=== PATIENT | female | born 1990 | race Caucasian/White ===

== ENCOUNTER 2019-12-16 09:37 | Inpatient (IN) | payer MEDICAID ==
[~2019-12-16] VITALS: Ht 165.1 cm; Wt 46.2 kg
[2019-12-16] MEDS ORDERED: ZOLPIDEM TARTRATE 10 MG TABLET PO PRN (10:30)
[2019-12-16 12:12] VITALS: BP 145/58
[2019-12-16] MEDS ORDERED: GuaiFENesin/D-METHORPHAN [SUGAR-FREE] 200-20MG/10 ML SYRUP UDCUP PO PRN (14:15)
[2019-12-16] MEDS ORDERED: ACETAMINOPHEN 325 MG TABLET PO PRN (14:15)
[2019-12-16] MEDS ORDERED: IBUPROFEN 400 MG TABLET PO PRN (14:15)
[2019-12-16] MEDS ORDERED: ALBUTEROL SULFATE HFA 90 MCG/PUFF 8 GM INHALER IH PRN (14:15)
[2019-12-16] MEDS ORDERED: PETROLATUM,WHITE 28 GM JELLY TP PRN (14:15)
[2019-12-16] MEDS ORDERED: CloNIDine HCL 0.1 MG TABLET PO PRN (14:15)
[2019-12-16] MEDS ORDERED: NICOTINE 14 MG/24 HOUR PATCH TD PRN (14:15)
[2019-12-16] MEDS ORDERED: ONDANSETRON HCL 4 MG TABLET PO PRN (14:15)
[2019-12-16] MEDS ORDERED: DOCUSATE SODIUM 100 MG CAPSULE PO PRN (14:15)
[2019-12-16] MEDS ORDERED: MAGNESIUM HYDROXIDE SUSPENSION 30 ML UDCUP PO PRN (14:15)
[2019-12-16] MEDS ORDERED: LOPERAMIDE HCL 2 MG CAPSULE PO PRN (14:15)
[2019-12-16] MEDS ORDERED: MAG HYDROX/AL HYDROX/SIMETH ES 30 ML SUSPENSION UDCUP PO PRN (14:15)
[2019-12-16 16:27] VITALS: BP 89/54
[2019-12-16 17:57] VITALS: BP 110/68
[2019-12-17 02:15] VITALS: BP 121/60
[2019-12-17 09:03] LABS: AMPHET/METH SCREEN,URINE POSITIVE (NEGATIVE); BARBITURATE SCREEN, URINE NEGATIVE (NEGATIVE); BENZODIAZEPINES SCREEN,URINE NEGATIVE (NEGATIVE); CANNABINOID SCREEN,URINE POSITIVE (NEGATIVE); COCAINE SCREEN,URINE NEGATIVE (NEGATIVE); METHADONE SCREEN, URINE NEGATIVE (NEGATIVE); OPIATE SCREEN,URINE NEGATIVE (NEGATIVE); PHENCYCLIDINE SCREEN,URINE NEGATIVE (NEGATIVE)
[2019-12-17 09:08] LABS: GLUCOSE, URINE (UA) NEGATIVE (NEGATIVE); KETONES,URINE TRACE mg/dL (NEGATIVE); NITRATE,URINE NEGATIVE (NEGATIVE); PH,URINE 5.5 (5.0-8.0); PROTEIN,URINE POS 1+ (NEGATIVE); UROBILINOGEN,URINE 0.2 mg/dL (<=1.0)
[2019-12-17 09:10] LABS: APPEARANCE,URINE SLIGHTLY CLOUDY (CLEAR); BILIRUBIN,URINE PRELIM. POSITIVE (NEGATIVE); LEUKOCYTE ESTERASE ,URINE MODERATE (NEGATIVE); OCCULT BLOOD,URINE TRACE (NEGATIVE)
[2019-12-17 09:11] LABS: BACTERIA,URINE None Seen /HPF (None Seen); CALCIUM OXALATE CRYSTALS,UR Few /LPF (None Seen); RBC,URINE 0-2 /HPF (0-2); SQUAMOUS EPITHELIAL CELL,UR Many /LPF (None Seen)
[2019-12-17 09:13] VITALS: BP 116/73
[2019-12-17] MEDS: ARIPiprazole 5 MG TABLET PO SCH (09:32)
[2019-12-17] MEDS: FLUoxetine HCL 20 MG CAPSULE PO SCH (09:34)
[2019-12-17 16:06] VITALS: BP 116/72
[2019-12-17] MEDS: CIPROFLOXACIN HCL 250 MG TABLET PO SCH (21:09)
[2019-12-18 01:17] VITALS: BP 110/77
[2019-12-18] MEDS: CIPROFLOXACIN HCL 250 MG TABLET PO SCH ×2 (08:15→20:07)
[2019-12-18] MEDS: FLUoxetine HCL 20 MG CAPSULE PO SCH (08:15)
[2019-12-18] MEDS: MULTIVITAMINS, THERAPEUTIC TABLET PO SCH (08:15)
[2019-12-18] MEDS: ARIPiprazole 5 MG TABLET PO SCH (08:15)
[2019-12-18] MEDS: HALOPERIDOL 5 MG TABLET PO PRN (08:41)
[2019-12-18] MEDS: LORazepam 2 MG TABLET PO PRN (08:41)
[2019-12-18 17:10] VITALS: BP 122/74
[2019-12-18 18:25] VITALS: BP 123/74
[2019-12-19 01:11] VITALS: BP 120/69
[2019-12-19] MEDS: CIPROFLOXACIN HCL 250 MG TABLET PO SCH (08:08)
[2019-12-19] MEDS: ARIPiprazole 5 MG TABLET PO SCH (08:08)
[2019-12-19] MEDS: MULTIVITAMINS, THERAPEUTIC TABLET PO SCH (08:09)
[2019-12-19] MEDS: FLUoxetine HCL 20 MG CAPSULE PO SCH (08:09)
[2019-12-19] MEDS: LORazepam 2 MG TABLET PO PRN (08:09)
[2019-12-19] MEDS: HALOPERIDOL 5 MG TABLET PO PRN (08:09)
[2019-12-19 08:14] VITALS: BP 112/74
[2019-12-19] MEDS ORDERED: ARIP5TAB8 PO (09:32)
[2019-12-19] MEDS ORDERED: FLUO-191 PO (09:32)
[2019-12-19] MEDS ORDERED: CIPR250T6 PO (12:16)
== END 2019-12-19 19:33 | disposition home or self-care (01) | DRG 751 ==
LOC: EDBD 11:50 → B3A 11:50
DX: F29 Unspecified psychosis not due to a substance or known physiological condition (principal); F15.10 Other stimulant abuse, uncomplicated; F12.10 Cannabis abuse, uncomplicated; N39.0 Urinary tract infection, site not specified; Z79.899 Other long term (current) drug therapy
CPT/HCPCS: 80307; 87086

== ENCOUNTER 2020-02-10 07:55 | Inpatient (IN) | payer MEDICAID ==
[~2020-02-10] VITALS: Ht 165.1 cm; Wt 49.0 kg
[~2020-02-10 07:55] MED LIST: ARIP5TAB8 PO; CIPR250T6 PO; FLUO-191 PO
[2020-02-10] MEDS ORDERED: TUBERCULIN, PURIFIED PROTEIN DERIVATIVE 5 TU/0.1 ML SYRINGE ID ONE (08:30)
[2020-02-10] MEDS ORDERED: MAG HYDROX/AL HYDROX/SIMETH ES 30 ML SUSPENSION UDCUP PO PRN (08:30)
[2020-02-10] MEDS ORDERED: PROMETHAZINE HCL 25 MG TABLET PO PRN (08:30)
[2020-02-10] MEDS ORDERED: ZOLPIDEM TARTRATE 10 MG TABLET PO PRN (08:30)
[2020-02-10] MEDS ORDERED: MAGNESIUM HYDROXIDE SUSPENSION 30 ML UDCUP PO PRN (08:30)
[2020-02-10] MEDS ORDERED: ACETAMINOPHEN 325 MG TABLET PO PRN (08:30)
[2020-02-10] MEDS ORDERED: LOPERAMIDE HCL 2 MG CAPSULE PO PRN (08:30)
[2020-02-10] MEDS ORDERED: HydrOXYzine PAMOATE 50 MG CAPSULE PO PRN (08:30)
[2020-02-10] MEDS ORDERED: OLANZapine 5 MG RAPDIS TABLET PO PRN (08:30)
[2020-02-10] MEDS ORDERED: GuaiFENesin/D-METHORPHAN [SUGAR-FREE] 200-20MG/10 ML SYRUP UDCUP PO PRN (08:30)
[2020-02-10] MEDS: OMEGA-3/DHA/EPA/FISH OIL 1,000 MG CAPSULE PO SCH (09:00)
[2020-02-10] MEDS: THIAMINE 100 MG TABLET PO SCH ×2 (17:00→20:30)
[2020-02-10] MEDS ORDERED: INFLUENZA VIRUS VACCINE QVS 2020-21 (6MO+)/PF 60 MCG/0.5 ML SYRINGE IM ONE (17:15)
[2020-02-10 17:55] VITALS: BP 119/70
[2020-02-10] MEDS: FLUoxetine HCL 20 MG CAPSULE PO SCH (20:30)
[2020-02-10] MEDS: NALTREXONE HCL 50 MG TABLET PO SCH (20:30)
[2020-02-10] MEDS: FOLIC ACID 1 MG TABLET PO SCH (20:30)
[2020-02-10] MEDS: MULTIVITAMINS WITH MINERALS, THERAPEUTIC TABLET PO SCH (20:30)
[2020-02-10] MEDS ORDERED: OLANZapine 5 MG RAPDIS TABLET PO SCH (21:00)
[2020-02-11 00:48] VITALS: BP 112/77
[2020-02-11 08:17] VITALS: BP 118/73
[2020-02-11] MEDS: FLUoxetine HCL 20 MG CAPSULE PO SCH (08:25)
[2020-02-11] MEDS: FOLIC ACID 1 MG TABLET PO SCH (08:25)
[2020-02-11] MEDS: BACITRACIN 28 GM OINTMENT TP SCH ×2 (08:25→16:35)
[2020-02-11] MEDS: THIAMINE 100 MG TABLET PO SCH ×2 (08:25→17:00)
[2020-02-11] MEDS: MULTIVITAMINS WITH MINERALS, THERAPEUTIC TABLET PO SCH (08:25)
[2020-02-11] MEDS: OMEGA-3/DHA/EPA/FISH OIL 1,000 MG CAPSULE PO SCH (08:25)
[2020-02-11] MEDS: NALTREXONE HCL 50 MG TABLET PO SCH (08:25)
[2020-02-11] MEDS ORDERED: LURASIDONE HCL 20 MG TABLET PO PRN (15:45)
[2020-02-11 16:05] VITALS: BP 116/72
[2020-02-11] MEDS: LURASIDONE HCL 40 MG TABLET PO SCH (17:00)
[2020-02-12 00:41] VITALS: BP 112/68
[2020-02-12] MEDS: LORazepam 2 MG TABLET PO PRN ×2 (08:15→17:47)
[2020-02-12] MEDS: FOLIC ACID 1 MG TABLET PO SCH (08:15)
[2020-02-12] MEDS: FLUoxetine HCL 20 MG CAPSULE PO SCH (08:15)
[2020-02-12] MEDS: MULTIVITAMINS WITH MINERALS, THERAPEUTIC TABLET PO SCH (08:15)
[2020-02-12] MEDS: OMEGA-3/DHA/EPA/FISH OIL 1,000 MG CAPSULE PO SCH (08:15)
[2020-02-12] MEDS: THIAMINE 100 MG TABLET PO SCH ×2 (08:15→17:08)
[2020-02-12] MEDS: NALTREXONE HCL 50 MG TABLET PO SCH (08:15)
[2020-02-12 08:23] VITALS: BP 118/70
[2020-02-12] MEDS: BACITRACIN 28 GM OINTMENT TP SCH ×2 (08:24→17:09)
[2020-02-12 16:01] VITALS: BP 108/60
[2020-02-12] MEDS: LURASIDONE HCL 40 MG TABLET PO SCH (17:08)
[2020-02-13 01:19] VITALS: BP 102/63
[2020-02-13 07:56] LABS: BASOPHILS % (AUTO) 0.6 % (0.0-2.0); EOSINOPHILS % (AUTO) 3.3 % (1.0-6.0); HEMATOCRIT 37.9 % (36-46); HEMOGLOBIN 12.4 g/dL (12.0-16.0); LYMPHOCYTES # (AUTO) 1.9 K/uL (1.0-4.8); LYMPHOCYTES % (AUTO) 38.4 % (22.0-44.0); MEAN CORPUSCULAR HEMOGLOBIN 30.4 pg (26.0-34.0); MEAN CORPUSCULAR HGB CONC 32.7 G/dL (31.0-37.0); MEAN CORPUSCULAR VOLUME 93 fL (80-100); MONOCYTES # (AUTO) 0.4 K/uL (0.1-1.0); MONOCYTES % (AUTO) 7.1 % (2.0-9.0); NEUTROPHILS # (AUTO) 2.5 K/uL (1.8-7.7); NEUTROPHILS % (AUTO) 50.6 % (40.0-70.0); PLATELET COUNT (AUTO) 306 K/uL (150-450); RED BLOOD CELL COUNT(AUTO) 4.07 MIL/uL (4.00-5.20)
[2020-02-13 08:10] VITALS: BP 116/79
[2020-02-13] MEDS: MULTIVITAMINS WITH MINERALS, THERAPEUTIC TABLET PO SCH (08:15)
[2020-02-13] MEDS: FOLIC ACID 1 MG TABLET PO SCH (08:15)
[2020-02-13 08:22] LABS: HEMOGLOBIN A1C 5.6 % (3.8-5.6)
[2020-02-13] MEDS: THIAMINE 100 MG TABLET PO SCH (08:22)
[2020-02-13] MEDS: OMEGA-3/DHA/EPA/FISH OIL 1,000 MG CAPSULE PO SCH (08:22)
[2020-02-13] MEDS: NALTREXONE HCL 50 MG TABLET PO SCH (08:22)
[2020-02-13 08:28] LABS: ALANINE AMINOTRANSFERASE 22 U/L (12-78); ALBUMIN 3.3 g/dL (3.4-5.0); ALKALINE PHOSPHATASE 53 U/L (46-116); ANION GAP 6 mmol/L (8-16); ASPARTATE AMINOTRANSFERASE 16 U/L (15-37); BILIRUBIN,TOTAL 0.2 mg/dL (0.1-1.0); CALCIUM, TOTAL 8.7 mg/dL (8.8-10.5); CARBON DIOXIDE 27 mmol/L (22-29); CHLORIDE 106 mmol/L (98-107); CHOL/HDL RATIO 2.9 (3.9-5.7); CHOLESTEROL 149 mg/dL (131-200); CREATININE 0.67 mg/dL (0.60-1.30); FREE T4 (FREE THYROXINE) 0.65 ng/dL (0.76-1.46); GLOMERULAR FILTR. RATE CALC > 60 mL/min (>60); GLUCOSE,RANDOM 85 mg/dL (70-110); HCG,QUANTITATIVE 1 mIU/mL (0-6); HDL CHOLESTEROL 51 mg/dL (40-60); LDL CHOL (CALC.) 78 mg/dL (0-130); POTASSIUM 4.3 mmol/L (3.5-5.1); SODIUM SERUM 139 mmol/L (136-145); THYROID STIMULATING HORMONE 0.43 uIU/mL (0.36-3.74); TOTAL PROTEIN, SERUM 6.9 g/dL (6.4-8.2); TRIGLYCERIDES 98 mg/dL (15-150); UREA NITROGEN, BLOOD 15 mg/dL (7-18)
[2020-02-13] MEDS ORDERED: FLUoxetine HCL 20 MG CAPSULE PO SCH (09:00)
[2020-02-13] MEDS: BACITRACIN 28 GM OINTMENT TP SCH (09:03)
[2020-02-13] MEDS ORDERED: LURA40TA2 PO (13:21)
[2020-02-13] MEDS ORDERED: OMEG-135 PO (13:21)
[2020-02-13] MEDS ORDERED: NALT50TA PO (13:21)
[2020-02-13] MEDS ORDERED: FLUO-191 PO (13:21)
== END 2020-02-13 15:30 | disposition home or self-care (01) | DRG 750 ==
LOC: B3A 17:22
PROVIDERS: ADMIT Psychiatry & Neurology Psychiatry; ATTEND Psychiatry & Neurology Psychiatry
DX: F25.9 Schizoaffective disorder, unspecified (principal); F31.9 Bipolar disorder, unspecified; J45.909 Unspecified asthma, uncomplicated; Z59.0 Homelessness; Z87.891 Personal history of nicotine dependence; Z91.19 Patient's noncompliance with other medical treatment and regimen; F12.10 Cannabis abuse, uncomplicated; F15.10 Other stimulant abuse, uncomplicated; F29 Unspecified psychosis not due to a substance or known physiological condition; R45.851 Suicidal ideations; Z55.9 Problems related to education and literacy, unspecified; Z65.3 Problems related to other legal circumstances
CPT/HCPCS: 83036; 84439; 84443; 86592